=== PATIENT | female | born 1955 | race Caucasian/White ===

== ENCOUNTER 2018-10-25 12:05 | Day surgery (SDC) | payer OTHER, MEDICAID ==
[~2018-10-25 12:05] MED LIST: DESFLURANE 15 MIN
[2018-10-25] MEDS ORDERED: PROPOFOL 20 ML ×2 (16:15→18:06)
[2018-10-25] MEDS ORDERED: MIDAZOLAM 1 MG/ML 2 ML INJ (16:15)
[2018-10-25] MEDS ORDERED: FENTAnyl 50 MCG/ML VIAL (16:15)
[2018-10-25] MEDS ORDERED: MEPERIDINE 25 MG INJ IV (16:30)
[2018-10-25] MEDS ORDERED: FENTAnyl 50 MCG/ML VIAL IV ×2 (16:30)
[2018-10-25] MEDS ORDERED: DIPHENHYDRAMINE 50 MG INJ IV (16:30)
[2018-10-25] MEDS ORDERED: HYDROmorphONE 1 MG/5 ML IV SYRINGE IV ×2 (16:30)
[2018-10-25] MEDS ORDERED: OXYCODONE/ACETAMINOPHEN (5/325) TAB PO (16:30)
[2018-10-25] MEDS ORDERED: METOCLOPRAMIDE 10 MG INJ (17:05)
[2018-10-25] MEDS ORDERED: ONDANSETRON 4 MG INJ (17:05)
[2018-10-25] MEDS ORDERED: LIDOCAINE 1% (MPF) 30 ML INJ (17:10)
[2018-10-25] MEDS ORDERED: ROPIVACAINE 0.5 % 30 ML VIAL (17:10)
[2018-10-25] MEDS ORDERED: NEOMYC/POLYMYX/BACIT 30 GM OINT (17:11)
[2018-10-25] MEDS ORDERED: CEFAZOLIN 1 GM INJ (17:20)
[2018-10-25] MEDS ORDERED: morphine 2 MG INJ IV (18:30)
[2018-10-25] MEDS: ONDANSETRON 4 MG INJ IV (19:11)
[2018-10-25] MEDS: HYDROmorphONE 1 MG/5 ML IV SYRINGE IV (19:11)
[2018-10-25] MEDS: KETOROLAC 30 MG INJ IV (19:11)
[2018-10-25] MEDS: OXYCODONE/ACETAMINOPHEN (5/325) TAB PO (19:12)
== END 2018-10-25 21:04 | disposition home or self-care (01) ==
LOC: SDS 12:05
DX: S83.282A Other tear of lateral meniscus, current injury, left knee, initial encounter (principal); M94.262 Chondromalacia, left knee; G47.33 Obstructive sleep apnea (adult) (pediatric); E03.9 Hypothyroidism, unspecified; F32.9 Major depressive disorder, single episode, unspecified
CPT/HCPCS: 29881; 82306